=== PATIENT | female | born 1975 | race African-American/Black ===

== ENCOUNTER → 2018-01-13 | Emergency (ER) | payer MEDICAID ==
[~2018-01-13] MED LIST: NORPTMEDS CO
== END | disposition left against medical advice (07) ==
LOC: ER 04:28
DX: M79.89 Other specified soft tissue disorders (principal); Z53.21 Procedure and treatment not carried out due to patient leaving prior to being seen by health care provider

== ENCOUNTER 2023-12-13 09:20 | Emergency (ER) | payer SELFPAY ==
[~2023-12-13] VITALS: Ht 162.6 cm; Wt 107.0 kg
[2023-12-13 09:53] VITALS: BP 130/81; PULSE 78; TEMP 98.1
[2023-12-13 10:12] VITALS: RESP 16; O2SAT 99
[2023-12-13] MEDS: ALBUTEROL SULF 2.5 MG/0.5ML(0.5%) NEB SOLN NEB ONE (10:12)
[2023-12-13] MEDS: IPRATROPIUM BROM 0.5 MG/2.5ML INH SOL NEB ONE (10:12)
[2023-12-13] MEDS ORDERED: PROM1SOL4 PO (10:17)
[2023-12-13] MEDS ORDERED: ALBU108A5 IN (10:17)
[2023-12-13] MEDS ORDERED: PRED20TA2 PO (10:21)
== END 2023-12-13 10:23 | disposition home or self-care (01) ==
LOC: ER 09:20
DX: J20.9 Acute bronchitis, unspecified (principal); M19.90 Unspecified osteoarthritis, unspecified site; F17.210 Nicotine dependence, cigarettes, uncomplicated; Z98.890 Other specified postprocedural states; Z86.2 Personal history of diseases of the blood and blood-forming organs and certain disorders involving the immune mechanism
CPT/HCPCS: 71045; 94640; 99283; J7644